=== PATIENT | female | born 1975 | race Caucasian/White ===

== ENCOUNTER 2018-08-25 13:42 | Emergency (ER) | payer BC ==
[~2018-08-25] VITALS: Ht 160 cm; Wt 44.9 kg
[2018-08-25 13:55] LABS: BASOPHILS # (AUTO) 0.1 /CMM (0.0-0.2); BASOPHILS % (AUTO) 1.2 % (0.0-2.0); EOSINOPHILS % (AUTO) 0.6 % (0.0-6.0); HEMATOCRIT 41 % (33-45); HEMOGLOBIN 13.7 g/dL (11.5-14.8); LYMPHOCYTES # (AUTO) 2.4 /CMM (0.8-4.8); LYMPHOCYTES % (AUTO) 28.7 % (20.0-44.0); MEAN CORPUSCULAR HGB CONC 34 g/dl (31.0-36.0); MEAN CORPUSCULAR VOLUME 96 fL (82-100); MONOCYTES # (AUTO) 0.5 /CMM (0.1-1.30); MONOCYTES % (AUTO) 5.7 % (2.0-12.0); NEUTROPHILS # (AUTO) 5.3 /CMM (1.8-8.9); NEUTROPHILS % (AUTO) 63.8 % (43.0-81.0); PLATELET COUNT (AUTO) 299 /CMM (150-450); RED BLOOD CELL COUNT(AUTO) 4.23 MIL/uL (4.0-5.2); WHITE BLOOD COUNT (AUTO) 8.3 K/uL (4.3-11.0)
[2018-08-25] MEDS ORDERED: KETOROLAC TROMETHAMINE INJ 30 MG/ML VIAL IV ONE (14:00)
[2018-08-25] MEDS ORDERED: ONDANSETRON HCL/PF 4 MG/2 ML VIAL IVP ONE (14:00)
[2018-08-25] MEDS ORDERED: IV NS 0.9% 1,000 ML BAG IV ONE (14:00)
[2018-08-25 14:02] LABS: CALCIUM, SERUM 9.6 mg/dL (8.5-10.1); CREATININE 0.8 mg/dL (0.6-1.3); POTASSIUM 4.1 mmol/L (3.5-5.1)
[2018-08-25 14:08] LABS: ALBUMIN 4.1 g/dL (3.4-5.0); BILIRUBIN,DIRECT 0.1 mg/dL (0.0-0.2); BILIRUBIN,TOTAL 0.5 mg/dL (0.2-1.0); TOTAL PROTEIN, SERUM 7.8 g/dL (6.4-8.2)
--- NOTE | 2018-08-25 14:10 | NUR ---
[id number], C/O SEVERE ABD PAIN SINCE 3AM THIS MORNING. PT AAOX4, VSS. DENIES CP, SOB, N/V, DIZZINESS @ THIS TIME. PT SEEN & EVAL'D BY [employer] INFANTE. PLACED ON [employer]. WILL CONT TO MONITOR.
--- NOTE | 2018-08-25 14:14 | NUR ---
AWAITING TEST BEFORE GIVING PAIN MED.
[2018-08-25] MEDS ORDERED: FAMOTIDINE 20 MG (14:24)
[2018-08-25] MEDS ORDERED: OXYCOD/APAP TAB 5-325MG (14:24)
[2018-08-25] MEDS ORDERED: FLUOXETINE 20 MG/5 ML (14:24)
[2018-08-25] MEDS ORDERED: KETOROLAC TROMETHAMINE INJ 30 MG/ML VIAL ONE (14:25)
[2018-08-25] MEDS ORDERED: LORAZEPAM INJ 2 MG/ML VIAL IV ONE (14:30)
[2018-08-25] MEDS ORDERED: ONDANSETRON HCL/PF 4 MG/2 ML VIAL ONE (14:45)
--- NOTE | 2018-08-25 14:45 | NUR ---
CALLED [facility] FOR MORE INFO ON PT, TRANSFERRED CALL TO ARELIS JIMÉNEZ)
[2018-08-25] MEDS ORDERED: LORAZEPAM INJ 2 MG/ML VIAL ONE (14:46)
[2018-08-25] MEDS ORDERED: DICYCLOMINE HCL 10 MG CAPSULE PO ONE ×2 (14:55→15:00)
--- NOTE | 2018-08-25 15:00 | NUR ---
MEDICATED FOR PAIN PER PA ORDER, PT PEY[place] WELL.
--- NOTE | 2018-08-25 15:38 | NUR ---
PASSED BY THE ROOM & NOT HEARING ANY MOANING OR SCREAMING, HEARING PT SPEAKING TO FRIEND @ BS. ONCE AMBERLY INFANTE & I WENT INSIDE THE ROOM PT STARTED MOANING, ABD PAIN STILL 03/28.
--- NOTE | 2018-08-25 16:11 | NUR ---
Patient discharged to home in stable condition. Written and verbal after care instructions given. Patient verbalizes understanding of instruction. IV removed. Catheter intact and site benign. Pressure and 4x4 applied to site. No bleeding noted.
[2018-08-25 16:12] VITALS: BP 130/79
== END 2018-08-25 16:14 | disposition home or self-care (01) ==
LOC: ER 13:45
DX: R10.32 Left lower quadrant pain (principal); R45.1 Restlessness and agitation; Z90.89 Acquired absence of other organs; Z88.5 Allergy status to narcotic agent; Z88.1 Allergy status to other antibiotic agents; Z88.8 Allergy status to other drugs, medicaments and biological substances
CPT/HCPCS: 36415; 80048-TC; 80076-TC; 83690-TC; 84702-TC; 85025-TC; J1885; J2060; J2405